=== PATIENT | female | born 1960 | race Hispanic/Latino ===

== ENCOUNTER → 2021-08-26 11:18 | Outpatient (CLI) | payer OTHER, SELFPAY ==
[2021-08-26 19:04] LABS: Add Manual Diff / Slide Review NO; Basophils Absolute Auto 100 /uL (0-100); Basophils Percent Auto 0.7 % (0-2); Eosinophils Absolute Auto 200 /uL (0-450); Eosinophils Percent Auto 2.7 % (2-4); Hematocrit 40.3 % (36-46); Hemoglobin 13.2 g/dL (12.0-16.0); Lymphocytes Absolute Auto 2000 /uL (1100-4500); Lymphocytes Percent Auto 25.7 % (25-40); Mean Corpuscular HGB Conc 32.9 % (30-36); Mean Corpuscular Hemoglobin 30.7 PG (26-34); Mean Corpuscular Volume 93.4 fL (80-100); Monocytes Absolute Auto 600 /uL (0-900); Monocytes Percent Auto 7.4 % (3-14); Neutrophils Absolute Auto 4800 /uL (1500-7000); Neutrophils Percent Auto 63.5 % (50-75); Platelet Count 241 X10^3/uL (150-400); Red Blood Cell Count 4.31 X10^6/uL (4.0-5.2); Red Cell Distribution Width 13.5 % (11.6-14.8); White Blood Cell Count 7.6 X10^3/uL (4.5-11.0)
[2021-08-26 19:06] LABS: Alanine Aminotransferase 19 IU/L (<35); Albumin 4.1 g/dL (3.5-5.0); Albumin Globulin Ratio 1.5 (1.0-2.8); Alkaline Phosphatase 67 U/L (38-126); Aspartate Aminotransferase 29 IU/L (14-36); BUN Creatinine Ratio 27.4 (6-22); Bilirubin Total 0.3 mg/dL (0.2-1.3); Blood Urea Nitrogen 20 mg/dL (7-17); Calcium 9.5 mg/dL (8.4-10.2); Carbon Dioxide 31 mmol/L (22-32); Chloride 103 mmol/L (98-107); Cholesterol 211 mg/dL (140-199); Estimated Glomerular Filt Rate > 60.0 mL/min (>60); Globulin 2.7 g/dL (1.7-4.1); Glucose 86 mg/dL (80-110); HDL Cholesterol 75 mg/dL (40-60); HEMOLYSIS < 15 (0-50); LDL Cholesterol Calculated 123 mg/dL (<100); Potassium 4.2 mmol/L (3.4-5.1); Sodium 140 mmol/L (137-145); Total Protein 6.8 g/dL (6.3-8.2); Triglycerides 65 mg/dL (35-150)
== END ==
PROVIDERS: PCP Physician Assistant; Visit Provider Physician Assistant
DX: I10 Essential (primary) hypertension (principal); Z13.220 Encounter for screening for lipoid disorders
CPT/HCPCS: 80053; 80061; 85025

== ENCOUNTER 2021-10-09 21:01 | Emergency (ER) | payer OTHER, SELFPAY ==
[2021-10-09 21:13] VITALS: BP 133/58; PULSE 74; RESP 12; TEMP 36.7; O2SAT 98; BMI 27.2
[2021-10-09 22:47] LABS: Add Manual Diff / Slide Review NO; Basophils Absolute Auto 0 /uL (0-100); Basophils Percent Auto 0.3 % (0-2); Eosinophils Absolute Auto 100 /uL (0-450); Hematocrit 41.8 % (36-46); Lymphocytes Absolute Auto 1200 /uL (1100-4500); Lymphocytes Percent Auto 14.4 % (25-40); Mean Corpuscular HGB Conc 33.5 % (30-36); Mean Corpuscular Hemoglobin 30.8 PG (26-34); Mean Corpuscular Volume 91.9 fL (80-100); Monocytes Absolute Auto 600 /uL (0-900); Monocytes Percent Auto 7.4 % (3-14); Neutrophils Absolute Auto 6100 /uL (1500-7000); Neutrophils Percent Auto 76.9 % (50-75); Platelet Count 233 X10^3/uL (150-400); Red Blood Cell Count 4.55 X10^6/uL (4.0-5.2); Red Cell Distribution Width 13.5 % (11.6-14.8)
[2021-10-09 22:57] LABS: Alanine Aminotransferase 20 IU/L (<35); Albumin 4.7 g/dL (3.5-5.0); Albumin Globulin Ratio 1.4 (1.0-2.8); Alkaline Phosphatase 55 U/L (38-126); Aspartate Aminotransferase 29 IU/L (14-36); BUN Creatinine Ratio 27.2 (6-22); Bilirubin Total 0.4 mg/dL (0.2-1.3); Blood Urea Nitrogen 28 mg/dL (7-17); Calcium 10.2 mg/dL (8.4-10.2); Carbon Dioxide 27 mmol/L (22-32); Chloride 101 mmol/L (98-107); Estimated Glomerular Filt Rate 54.1 mL/min (>60); Globulin 3.3 g/dL (1.7-4.1); Glucose 108 mg/dL (80-110); HEMOLYSIS < 15 (0-50); Lipase 54 U/L (23-300); Potassium 4.3 mmol/L (3.4-5.1); Sodium 138 mmol/L (137-145)
[2021-10-10 02:08] VITALS: BP 118/58; PULSE 57; RESP 18; O2SAT 96
--- NOTE | 2021-10-10 02:51 | ED.ABDPAIN ---
HPI - Abdominal Pain General Chief Complaint: Abdominal Pain Stated Complaint: RIGHT SIDE LOWER PAIN Time Seen by Provider: 10/10/21 02:44 Source: patient Mode of arrival: Ambulatory History of Present Illness HPI narrative: 61-year-old woman with history of hypertension hyperlipidemia presents with 5 days of increasing right lower quadrant abdominal pain. She notes that it is worse when she is standing or walking better if she is just laying flat. She is not complaining of vaginal discharge dysuria or flank pain. She describes no fevers or chills. She states she had a normal bowel movement yesterday that did not influence her pain in any way. She has never experienced pain like this previously. She denies cough, dyspnea, lower extremity edema. She notes that she had her 3rd COVID vaccine yesterday and does have a mild headache this evening. Related Data Previous Rx's Medication Instructions Recorded docusate sodium 250 mg capsule 250 mg PO DAILY #30 cap 10/10/21 oxycodone-acetaminophen 5 mg-325 1 tab PO Q6H PRN #12 tab 10/10/21 mg tablet Allergies Allergy/AdvReac Type Severity Reaction Status Date / Time No Known Drug Allergies Allergy Verified 10/09/21 21:20 Review of Systems Review of Systems Narrative: Remainder of complete review of systems is otherwise unremarkable except for that included in the HPI. Patient History Medical History (Updated 10/10/21 @ 05:04 by Deana Campbell MD) Hyperlipidemia Hypertension Social History Smoking Status: Never smoker Smoking Status: Never smoker alcohol intake frequency: a few times a month Substance Use Type: does not use Exam Narrative Exam Narrative: General: Healthy appearing, in no acute distress. Able to give a complete and coherent history. Well-nourished well-developed HEENT: Moist mucous membranes, normal sclera with reactive pupils, Neck: supple Respiratory: Lungs are clear to auscultation, no wheezing no rales no rhonchi. Full and symmetrical air movement Cardiac: Regular rate and rhythm no murmurs no bruits Abdomen: Soft, tender in the right lower quadrant without rebound or guarding, good bowel tones, no flank pain Skin: Warm and dry, no rashes Neurologic: Grossly neurologically intact with no obvious asymmetries or abnormalities Extremities: No trauma, well perfused Psych: Cooperative, appropriate insight and affect Initial Vital Signs Initial Vital Signs: Vital Signs Temperature 98.0 F 10/09/21 21:13 Pulse Rate 74 10/09/21 21:13 Respiratory Rate 12 10/09/21 21:13 Blood Pressure 133/58 L 10/09/21 21:13 Pulse Oximetry 98 10/09/21 21:13 Course Orders Ordered: ED Orders 10/09/21 22:35 Complete Blood Count AUTO DIFF Stat Comprehensive Metabolic Panel Stat Lipase Stat 10/10/21 02:55 CT abdomen pelvis w con Stat Discontinued Medications Sodium Chloride (Normal Saline 0.9%) 1,000 mls @ 1,000 mls/hr IV BOLUS ONE Stop: 10/10/21 03:53 Ketorolac Tromethamine (Ketorolac 30 Mg/Ml Vial) 15 mg IV NOW ONE Stop: 10/10/21 02:55 Last Admin: 10/10/21 03:24 Dose: 15 mg Documented by: MISHA Vital Signs Vital signs: Vital Signs - 8 hr 10/09/21 21:13 10/10/21 02:08 Temperature 98.0 F Pulse Rate 74 57 L Respiratory Rate 12 18 Blood Pressure 133/58 L 118/58 L Pulse Oximetry 98 96 MDM - Abdominal Pain Lab Data Result diagrams: 10/09/21 22:35 10/09/21 22:35 Labs: Lab Results 10/09/21 10/09/21 Range/Units 22:35 22:35 WBC 8.0 (4.5-11.0) X10^3/uL RBC 4.55 (4.0-5.2) X10^6/uL Hgb 14.0 (12.0-16.0) g/dL Hct 41.8 (36-46) % MCV 91.9 (80-100) fL MCH 30.8 (26-34) PG MCHC 33.5 (30-36) % RDW 13.5 (11.6-14.8) % Plt Count 233 (150-400) X10^3/uL Neut % (Auto) 76.9 H (50-75) % Lymph % (Auto) 14.4 L (25-40) % [place] % (Auto) 7.4 (3-14) % Eos % (Auto) 1.0 L (2-4) % Baso % (Auto) 0.3 (0-2) % Neut # (Auto) 6100 (0944-5323) /uL Lymph # (Auto) 1200 (6077-6629) /uL [place] # (Auto) 600 (0-900) /uL Eos # (Auto) 100 (0-450) /uL Baso # (Auto) 0 (0-100) /uL Sodium 138 (137-145) mmol/L Potassium 4.3 (3.4-5.1) mmol/L Chloride 101 (98-107) mmol/L Carbon Dioxide 27 (22-32) mmol/L BUN 28 H (7-17) mg/dL Creatinine 1.03 (0.52-1.04) mg/dL Estimated GFR 54.1 L (>60) mL/min BUN/Creatinine Ratio 27.2 H (6-22) Glucose 108 (80-110) mg/dL Calcium 10.2 (8.4-10.2) mg/dL Total Bilirubin 0.4 (0.2-1.3) mg/dL AST 29 (14-36) IU/L ALT 20 (<35) IU/L Alkaline Phosphatase 55 (38-126) U/L Total Protein 8.0 (6.3-8.2) g/dL Albumin 4.7 (3.5-5.0) g/dL Globulin 3.3 (1.7-4.1) g/dL Albumin/Globulin Ratio 1.4 (1.0-2.8) Lipase 54 (23-300) U/L Point of care testing: Urine Dip Bedside Urine Glucose Negative Bedside Urine Bilirubin - Negative Bedside Urine Ketone - Negative Urine Specific [place] 1.015 Bedside Urine Occult Blood - Negative Bedside Urine pH 5.0 Bedside Urine Protein - Negative Bedside Urine Urobilinogen - Negative Bedside Urine Nitrite - Negative Bedside Urine Leukocytes - Negative Esterase Imaging Data CT scan - abdomen/pelvis: Radiologist's Impression: 8 cm complex cystic right adnexal mass most consistent with an ovarian neoplasm. Bilateral nonobstructing renal calculi Distal colonic diverticulosis without evidence of acute diverticulitis Large stool burden MDM Narrative Medical decision making narrative: 61-year-old woman with a week of increasing right lower quadrant abdominal pain. Labs are fairly reassuring with normal white blood cell count, no hematuria to suggest kidney stone, nothing that looks like a urinary tract infection. Because symptoms have been increasing over the last week in the setting of normal regular bowel movements will move to CT scan to see if we can further elucidate the etiology of her right lower quadrant pain. CT scan returns showing an 8 cm complex cystic right adnexal mass concerning for cancer. Findings are shared with patient and her . Care is reviewed with DARRYL York on-call. Will have the patient contact [facility] on Tuesday to schedule an appointment with gynecology. She is given a short course of Percocet for pain. Have also given her docusate as a stool softener not only to help with the current stool burden but alleviate symptoms of constipation should she use any of the Percocet Questions are answered, patient and her understand they do need to call Tuesday to set up an appointment as soon as possible to schedule a consultation and presumably surgical intervention for the right adnexal mass that is causing her right lower quadrant pain. Discharge Plan Departure Patient Disposition: Home Clinical Impression: Mass of uterine adnexa, Acute right lower quadrant pain Activity Restrictions/Additional Instructions: Thank you for coming in today The CT scan showed an 8 cm mass on the right side of your uterus. This is concerning for ovarian cancer. You need to follow-up with a chest painting and sealing supervisor and will need surgery to have this removed so we know exactly what it is and how to treat it. Please call [facility] at [phone] on Tuesday and let them know that you are in the ER over the weekend, you need to schedule an appointment with a chest painting and sealing supervisor for a probable right ovarian cancer Using 400 mg of ibuprofen (2 qqcr-[id number]-kaefwob pills) and 1 Tylenol every 6 hours can be very helpful in controlling pain. For severe pain you can use 400 mg of ibuprofen and 1 Percocet. If you use Percocet, please also take a stool softener. If you have worsening symptoms or find that you can not have a bowel movement, please return to the ER I wish you the best Prescriptions: New oxycodone-acetaminophen 5-325 mg tablet 1 tab PO Q6H PRN (Reason: pain) Qty: 12 0RF docusate sodium 250 mg capsule 250 mg PO DAILY Qty: 30 0RF
--- NOTE | 2021-10-10 02:55 | DI.CT.S_ITS ---
PROCEDURE: CT ABDOMEN PELVIS W CON INDICATIONS: abd pain, RLQ TECHNIQUE: After the administration of oral and IV contrast, axial sections were acquired from the lung bases to the pubic symphysis. Coronal and sagittal reformats were performed. For radiation dose reduction, the following was used: automated exposure control, adjustment of mA and/or kV according to patient size. COMPARISON: None. FINDINGS: Image quality: Excellent. Lung bases: Unremarkable. There is a small to moderate hiatal hernia seen. Heart: No significant findings. ABDOMEN: Liver: Mild diffuse fatty liver infiltration is seen. No focal liver lesions are seen. Gallbladder: Unremarkable. Biliary ducts: Unremarkable. Pancreas: Unremarkable. Spleen: Unremarkable. Adrenal Glands: Unremarkable. Kidneys and Ureters: There is a nonobstructing 2 mm left-sided kidney stone and a nonobstructing right-sided 2 mm kidney stone. There is no hydronephrosis. The kidneys demonstrate normal size and enhance symmetrically. Stomach and Bowel: In this patient with this given history, scrutiny is given to the appendix. The appendix is well seen and is normal. No focal right lower quadrant inflammatory changes are seen. Stomach, small bowel loops, and colon are unremarkable. Colonic diverticulosis is seen, without findings of active diverticulitis. There is a moderate to prominent amount of stool seen within the colon. Peritoneum: No abnormal intraperitoneal fluid. No free air. Ventral Wall: No hernia. Abdominal Nodes: No retroperitoneal or mesenteric adenopathy by size criteria. Vessels: Aorta and inferior vena cava are normal in size. PELVIS: Pelvic Organs: There is a right ovarian septated cystic mass seen that measures 6.6 x 6.6 cm in greatest axial dimension, with a craniocaudal extent of 7.5 cm. Enhanced solid elements are seen along the superior aspect of this mass, as on series 4, image 41. Bladder: Unremarkable. Pelvic Nodes: No enlarged lymph nodes. Miscellaneous: No inguinal hernias are seen. Bones: Minimal S shaped scoliotic curvature is seen. Focal L5-S1 degenerative change is seen, with milder degenerative changes seen elsewhere. IMPRESSION: The appendix is normal. There is a 7.5 cm cystic septated right ovarian mass, with enhancing solid elements. There is strong clinical concern for ovarian neoplasm. Gynecology consultation is recommended. If clinically appropriate, a dedicated pelvic ultrasound or gynecological protocol MRI (without and with contrast) could be considered for further evaluation (assuming that there is no contraindication). There is a moderate to prominent amount of stool seen within the colon. Please correlate with an underlying history of constipation. Incidental note is made of: Small to moderate hiatal hernia Mild fatty liver infiltration Nonobstructing bilateral renal stones Diverticulosis, without active diverticulitis Focal L5-S1 degenerative change Note: No significant discrepancy from the preliminary report. Dictated by: Jeremias Ordaz M.D. on 10/10/2021 at 9:14 Approved by: Jeremias Ordaz M.D. on 10/10/2021 at 9:20
[2021-10-10] MEDS: SODIUM CHLORIDE 0.9% 1,000 ML 1000 ML IV (03:10)
[2021-10-10] MEDS: KETOROLAC 30 MG/ML VIAL 15 MG IV (03:24)
[2021-10-10 05:12] VITALS: BP 117/67; PULSE 55; RESP 16; O2SAT 97
== END 2021-10-10 05:23 | disposition home or self-care (01) ==
PROVIDERS: Emergency Provider Emergency Medicine
DX: R10.31 Right lower quadrant pain (principal); N85.8 Other specified noninflammatory disorders of uterus
CPT/HCPCS: 36415; 74177; 80053; 81003; 83690; 85025; 96361; 96374; 99284; J1885; Q9967

== ENCOUNTER → 2021-10-21 08:45 | Outpatient (CLI) | payer OTHER, SELFPAY ==
[2021-10-21 10:58] LABS: Cancer Antigen 125 < 5.5 U/mL (0-35)
[2021-10-25 11:36] LABS: Human Epididymis Prot 4 51.3 pmol/L (0.0-96.5)
== END ==
PROVIDERS: Referring Provider Obstetrics & Gynecology; Visit Provider Obstetrics & Gynecology
DX: R19.09 Other intra-abdominal and pelvic swelling, mass and lump (principal); N94.89 Other specified conditions associated with female genital organs and menstrual cycle
CPT/HCPCS: 36415; 86304; 86305

== ENCOUNTER → 2021-10-26 16:33 | Outpatient (CLI) | payer OTHER, SELFPAY ==
[2021-10-26 18:31] LABS: COVID19 -Nasal RAPID Negative (Negative)
== END ==
PROVIDERS: PCP Family Medicine; Visit Provider Obstetrics & Gynecology
DX: Z01.812 Encounter for preprocedural laboratory examination (principal); Z20.822 Contact with and (suspected) exposure to COVID-19
CPT/HCPCS: 87635

== ENCOUNTER 2021-10-27 06:12 | Day surgery (SDC) | payer OTHER, SELFPAY ==
[2021-10-26 11:57] VITALS: BMI 26.4
[2021-10-27] VITALS (12 sets, daily range): BP systolic 114–130; BP diastolic 53–78; PULSE 58–658; RESP 11–20; TEMP 36.4–36.9; O2SAT 92–99; BMI 26.4
--- NOTE | 2021-10-27 | PATH_ITS ---
[facility] Accession Number: [id number] . 01 Material submitted: . fallopian tube - BILATERAL TUBE AND OVARY . 01 Clinical history: . RIGHT OVARY WITH CYST . 02 Diagnosis: Bilateral Fallopian Tubes and Right Ovary, Laparoscopic Bilateral Salpingectomies with Right Oophorectomy: Right ovary with a benign multiloculated serous cystadenoma / adenofibroma (disrupted measurement 8.0 cm in greatest dimension). Right fallopian tube (no fimbriae identified at gross examination) with hydrosalpinx and with multiple benign Walthard rest cysts and with benign serous inclusion cysts (less than 1 mm); negative for atypia or malignancy. Left fallopian tube (no fimbriae identified) with serosal adhesions (non-specific) and with benign paratubal cysts (1-5 mm); negative for atypia or malignancy. [facility] 10/29/2021 1633 Local . 02 Electronically signed: . Callie London MD, Pathologist NPI- [id number] . 01 Gross description: . The specimen is received in formalin labeled bilateral tubes and ovary, right ovarian cyst and consists of an 8.0 x 7.0 x 4.2 cm fragmented and disrupted cystic ovary with a ware-pink to ware-white smooth to wrinkled external surface. Opening reveals a ware-pink, smooth to wrinkled inner lining with no papillary excrescences. The cyst wall measures 0.1 cm. The attached fallopian tube measures 8.0 cm in length x 1.0 cm in diameter and displays a ware-pink smooth serosa. No fimbriae are present. Sectioning reveals a ware-pink mucosa and a lumen measuring 0.6 cm in diameter. Also, received is an additional fallopian tube measuring 3.6 cm in length x 0.8 cm in diameter with a pink-purple smooth to ragged serosa. No fimbriae are present. Sectioning reveals a ware-pink mucosa and a lumen measuring 0.3 cm in diameter. [employer] are sections are submitted. . A1-A3 - [employer] ovarian cyst. A4 - Attached fallopian tube, margin (en face/blue), bisected tip and central cross sections. A5 - Other fallopian tube, margin (blue/en face), central cross sections and bisected tip. ([id number]) /[facility] 10/28/2021 1658 Local . 02 Pathologist provided ICD-10: N83.209 . 02 CPT . 544461 Performed at: 01 [facility] [address] [facility], [place], [place] [id number] MD J Carlos Julio MD Phone: [phone] Performed at: 02 [facility] [address] [place], [place] [id number] MD Elaine Michelle MD Phone: [phone]
[2021-10-27] MEDS: LACTATED RINGERS 1,000 ML 100 ML IV ×2 (07:12→10:11)
--- NOTE | 2021-10-27 07:18 | SUR.OPER ---
Lithotomy on padded OR bed, head on pillow, arms secured on padded arm boards at <90 degrees abduction. Legs secured in padded yellow fins stirrups.
--- NOTE | 2021-10-27 08:23 | PM.PREOP ---
Pre-operative Note COVID-19 COVID-19 status: Negative Result date/Date tested (Pos, Neg/Pending): 10/26/21 Interval Note History & Physical reviewed/Exam performed by Physician: Yes Changes to H&P: No H&P completed within 30 days and has changed as indicated here:: 10/21/21
[2021-10-27] MEDS: EPINEPHrine 1 MG/ML 0.15 MG INJ (08:39)
[2021-10-27] MEDS: BUPIVACAINE 0.5% (PF) VIAL 30 ML INJ (08:40)
--- NOTE | 2021-10-27 09:51 | PM.GYNOP.1 ---
Operative Date/Time/Diagnoses Date of procedure: 10/27/21 Time of procedure: 09:52 Pre-op diagnosis: 7 cm Right ovarian mass Post-op diagnosis: same Procedure & Clinicians Procedure: Procedures Operation Date: 10/27/21 07:45 Actual Procedure Side Surgeon p Laparoscopic Salpingo-oophorectomy Bilateral Haley Marie MD Indications: 7 cm complex ovarian mass RLQ pain Surgeon: Haley Marie Anesthesia Type: General and Local Operative Notes Findings: 5 wk size anteverted uterus 7 cm multicystic mass of right ovary Nl tubes Normal left ovary Normal liver and gallbladder Normal appendix Colon to right abdominal sidewall adhesions Colon 2 right upper quadrant sidewall adhesions Left ovary to uterine adhesions Closure Type: primary Specimen(s): left tube & ovary, right tube & ovary and other (cyst fluid to cytology) Applied: catheter (in and out) Estimated blood loss (mL): 10 Blood products transfused: none Procedure in detail: After informed consent was obtained, the patient was taken to the operating room where she was placed in the dorsal supine position. After adequate general endotracheal anesthesia was achieved, she was placed in the dorsal lithotomy position, and prepped and draped in the usual sterile fashion. A time-out was performed. A bivalve speculum was placed into the vagina and the anterior lip of the cervix was grasped with a single-tooth tenaculum. The cervical os was sequentially dilated until the Zumi uterine manipulator could pass easily into the endometrial cavity. Single-tooth tenaculum was removed from the anterior lip of the cervix. The bivalve speculum was removed from the vagina. Attention was then turned to the abdomen where 6 cc of 0.5% Marcaine with epinephrine were injected in the umbilical fold. A 5 mm incision was made. The Veress needle was placed into the peritoneal cavity, and its placement confirmed by aspiration and drop test. The abdominal cavity was insufflated with 3.1 L of CO2. The Veress needle was removed, and a 5 mm trocar was placed without difficulty. Two other incisions were made 4 cm lateral to the midline after 6 cc of 0.5% Marcaine with epinephrine were injected. 5 mm incisions were made. Two 5 mm trocars were placed under direct visualization. The right tube and ovary were visualized and there was a 7 cm cyst on the right ovary. The left ovary was normal as was the left tube. The right tube was also normal. The right tube and ovary were grasped with an atraumatic grasper. Using the PlasmaKinetic was settings at 40 w, the infundibulopelvic ligament on the right side was cauterized and cut. Cautery was continued down the mesosalpinx all the way to the cornua of the uterus. The tube was amputated at the cornua. The right tube and ovary were placed into the anterior cul-de-sac. This was all repeated on the patient's left side. The upper abdomen was examined and was found to be normal with liver and gallbladder. The appendix was normal. There were some adhesions between the colon and the right abdominal sidewall and right upper quadrant sidewall. These were taken down with the Endo Castillo. Hemostasis was achieved. Hemostasis was achieved in the pelvis as well. A fourth incision was made above the pubic symphysis that was 12 mm, after 6 cc of 0.5% Marcaine with epinephrine were injected. A 12 mm trocar was placed. The large endobag was placed into the pelvis. The tubes and ovaries were placed into the bag. The trocar was removed. The edges of the bag were brought up through the skin. A spinal needle was placed into the bag and approximately 90 cc of clear fluid was drained from the cyst. The bag was then removed with the tubes and ovaries inside. The fascia on the suprapubic incision was closed with 0 Vicryl in a running fashion. The pelvis was examined after it was re-insufflated. There was no bleeding noted. The instruments were removed from the abdomen. The CO2 was allowed to escape. Suprapubic incision was closed with 2 simple interrupted sutures with 3-0 Vicryl in the sub cutaneous layer. All of the incisions were closed with 4-0 Monocryl in a sub cuticular fashion. Steri-Strips and Allevyn dressings were placed. The Zumi uterine manipulator was removed from the uterus. Sponge, lap, and instrument counts were correct x2. The patient tolerated the procedure well, and was taken to PACU in stable condition. Complications: none Post-operative Condition: stable Disposition: PACU Plan for aftercare: Home after recovery
[2021-10-27] MEDS: OXYCODONE/ACETAMINOPHEN 5/325 TABLET 1 TAB PO ×2 (10:14→10:48)
[2021-10-27] MEDS: ONDANSETRON 4 MG/2 ML INJ IV (10:14)
[2021-10-27] MEDS: HYDROMORPHONE 2 MG INJ IV (10:27)
== END 2021-10-27 11:45 | disposition home or self-care (01) ==
PROVIDERS: PCP Family Medicine; Referring Provider Obstetrics & Gynecology; Visit Provider Obstetrics & Gynecology
PROC: 0UT24ZZ Resection of Bilateral Ovaries, Percutaneous Endoscopic Approach (ICD-10-PCS; CPT 58661; principal; 2021-10-27 07:45)
DX: N83.8 Other noninflammatory disorders of ovary, fallopian tube and broad ligament (principal); K66.0 Peritoneal adhesions (postprocedural) (postinfection); I10 Essential (primary) hypertension; E78.5 Hyperlipidemia, unspecified; D27.0 Benign neoplasm of right ovary; N70.11 Chronic salpingitis
CPT/HCPCS: 58661; J0171; J1100; J1170; J1885; J2405; J2704; J3010

== ENCOUNTER → 2021-12-28 07:59 | Outpatient (CLI) | payer OTHER, SELFPAY ==
[2021-12-28 19:33] LABS: Cholesterol 171 mg/dL (140-199); HDL Cholesterol 67 mg/dL (40-60); LDL Cholesterol Calculated 92 mg/dL (<100); Triglycerides 59 mg/dL (35-150)
== END ==
PROVIDERS: PCP Physician Assistant; Visit Provider Family Medicine
DX: E78.5 Hyperlipidemia, unspecified (principal); I10 Essential (primary) hypertension
CPT/HCPCS: 80061

== ENCOUNTER → 2022-07-22 11:09 | Outpatient (CLI) | payer OTHER, SELFPAY ==
[2022-07-22 19:30] LABS: Hemoglobin A1C% w Est Avg Glu 5.6 % (4.0-6.0)
[2022-07-22 19:38] LABS: Alanine Aminotransferase 24 IU/L (<35); Albumin 4.4 g/dL (3.5-5.0); Albumin Globulin Ratio 1.5 (1.0-2.8); Alkaline Phosphatase 63 U/L (38-126); Aspartate Aminotransferase 32 IU/L (14-36); BUN Creatinine Ratio 18.5 (6-22); Bilirubin Total 0.6 mg/dL (0.2-1.3); Blood Urea Nitrogen 17 mg/dL (7-17); Calcium 9.4 mg/dL (8.4-10.2); Carbon Dioxide 26 mmol/L (22-32); Chloride 104 mmol/L (98-107); Estimated Glomerular Filt Rate > 60 mL/min (>60); Glucose 85 mg/dL (80-110); HEMOLYSIS < 15 (0-50); Potassium 4.6 mmol/L (3.4-5.1); Sodium 139 mmol/L (137-145); Total Protein 7.4 g/dL (6.3-8.2)
== END ==
PROVIDERS: PCP Physician Assistant; Visit Provider Physician Assistant
DX: I10 Essential (primary) hypertension (principal); Z13.1 Encounter for screening for diabetes mellitus
CPT/HCPCS: 80053; 83036

== ENCOUNTER → 2023-08-23 08:53 | Outpatient (CLI) | payer OTHER, SELFPAY ==
[2023-08-23 19:09] LABS: Alanine Aminotransferase 29 IU/L (<35); Albumin 4.3 g/dL (3.5-5.0); Albumin Globulin Ratio 1.4 (1.0-2.8); Alkaline Phosphatase 59 U/L (38-126); Aspartate Aminotransferase 37 IU/L (14-36); BUN Creatinine Ratio 30.1 (6-22); Bilirubin Total 0.8 mg/dL (0.2-1.3); Blood Urea Nitrogen 25 mg/dL (7-17); Calcium 10.3 mg/dL (8.4-10.2); Carbon Dioxide 27 mmol/L (22-32); Chloride 102 mmol/L (98-107); Cholesterol 185 mg/dL (140-199); Estimated Glomerular Filt Rate > 60 mL/min (>60); Glucose 92 mg/dL (80-110); HDL Cholesterol 79 mg/dL (40-60); HEMOLYSIS < 15 (0-50); LDL Cholesterol Calculated 93 mg/dL (<100); Potassium 4.3 mmol/L (3.4-5.1); Sodium 139 mmol/L (137-145); Total Protein 7.3 g/dL (6.3-8.2); Triglycerides 63 mg/dL (35-150)
[2023-08-23 19:26] LABS: Add Manual Diff / Slide Review NO; Basophils Absolute Auto 0 /uL (0-100); Basophils Percent Auto 0.5 % (0-2); Eosinophils Absolute Auto 200 /uL (0-450); Eosinophils Percent Auto 3.1 % (2-4); Hematocrit 41.7 % (36-46); Lymphocytes Absolute Auto 1900 /uL (1100-4500); Lymphocytes Percent Auto 27.9 % (25-40); Mean Corpuscular HGB Conc 33.7 % (30-36); Mean Corpuscular Hemoglobin 31.3 PG (26-34); Mean Corpuscular Volume 92.9 fL (80-100); Monocytes Absolute Auto 600 /uL (0-900); Monocytes Percent Auto 9.5 % (3-14); Neutrophils Absolute Auto 4000 /uL (1500-7000); Platelet Count 232 X10^3/uL (150-400); Red Blood Cell Count 4.48 X10^6/uL (4.0-5.2); Red Cell Distribution Width 13.9 % (11.6-14.8); White Blood Cell Count 6.7 X10^3/uL (4.5-11.0)
== END ==
PROVIDERS: PCP Physician Assistant; Visit Provider Physician Assistant
DX: E78.5 Hyperlipidemia, unspecified (principal); I10 Essential (primary) hypertension; Z79.899 Other long term (current) drug therapy
CPT/HCPCS: 80053; 80061; 85025

== ENCOUNTER → 2023-10-20 11:26 | Outpatient (CLI) | payer OTHER, SELFPAY ==
[2023-10-20 21:15] LABS: Alanine Aminotransferase 19 IU/L (<35); Albumin 4.3 g/dL (3.5-5.0); Albumin Globulin Ratio 1.5 (1.0-2.8); Alkaline Phosphatase 63 U/L (38-126); Aspartate Aminotransferase 27 IU/L (14-36); BUN Creatinine Ratio 24.1 (6-22); Bilirubin Total 0.7 mg/dL (0.2-1.3); Blood Urea Nitrogen 19 mg/dL (7-17); Calcium 10.1 mg/dL (8.4-10.2); Carbon Dioxide 29 mmol/L (22-32); Chloride 101 mmol/L (98-107); Estimated Glomerular Filt Rate > 60 mL/min (>60); Globulin 2.9 g/dL (1.7-4.1); Glucose 97 mg/dL (80-110); HEMOLYSIS < 15 (0-50); Potassium 4.2 mmol/L (3.4-5.1); Sodium 137 mmol/L (137-145); Total Protein 7.2 g/dL (6.3-8.2)
== END ==
PROVIDERS: PCP Physician Assistant; Visit Provider Physician Assistant
DX: I10 Essential (primary) hypertension (principal); R74.8 Abnormal levels of other serum enzymes
CPT/HCPCS: 80053

== ENCOUNTER → 2024-08-14 15:18 | Outpatient (CLI) | payer OTHER, SELFPAY | PROVIDERS: PCP Physician Assistant; Visit Provider Physician Assistant | DX: R30.0 Dysuria (principal) | CPT/HCPCS: 87086 ==

== ENCOUNTER → 2024-08-29 09:35 | Outpatient (CLI) | payer OTHER, SELFPAY ==
[2024-08-31 11:12] LABS: Fecal Immunochemical Test Negative (Negative)
== END ==
PROVIDERS: PCP Physician Assistant; Visit Provider Physician Assistant
DX: I10 Essential (primary) hypertension (principal); E78.5 Hyperlipidemia, unspecified; R74.8 Abnormal levels of other serum enzymes; Z12.11 Encounter for screening for malignant neoplasm of colon; Z11.59 Encounter for screening for other viral diseases
CPT/HCPCS: 82274

== ENCOUNTER → 2024-09-07 08:15 | Outpatient (CLI) | payer OTHER, SELFPAY ==
[2024-09-07 21:45] LABS: Add Manual Diff / Slide Review NO; Basophils Absolute Auto 0 /uL (0-100); Basophils Percent Auto 0.6 % (0-2); Eosinophils Absolute Auto 200 /uL (0-450); Eosinophils Percent Auto 4.1 % (2-4); Hematocrit 42.2 % (36-46); Hemoglobin 14.2 g/dL (12.0-16.0); Lymphocytes Absolute Auto 1200 /uL (1100-4500); Lymphocytes Percent Auto 21.5 % (25-40); Mean Corpuscular HGB Conc 33.8 % (30-36); Mean Corpuscular Hemoglobin 31.7 PG (26-34); Mean Corpuscular Volume 93.7 fL (80-100); Monocytes Absolute Auto 700 /uL (0-900); Monocytes Percent Auto 12.1 % (3-14); Neutrophils Absolute Auto 3600 /uL (1500-7000); Neutrophils Percent Auto 61.7 % (50-75); Platelet Count 219 X10^3/uL (150-400); Red Cell Distribution Width 13.4 % (11.6-14.8); White Blood Cell Count 5.8 X10^3/uL (4.5-11.0)
[2024-09-07 21:51] LABS: Appearance Urine UA SL CLOUDY; Bilirubin Urine UA NEGATIVE (NEGATIVE); Color Urine UA YELLOW; Glucose Urine UA NEGATIVE (Negative); Ketones Urine UA NEGATIVE (NEGATIVE); Leukocyte Esterase Urine UA NEGATIVE (NEGATIVE); Nitrite Urine UA NEGATIVE (Negative); Occult Blood Urine UA NEGATIVE (Negative); Protein Urine UA NEGATIVE (Negative); Urobilinogen Urine UA 0.2 E.U./dL (0.2)
[2024-09-07 22:02] LABS: Bacteria Urine Occasional (0-1); Cholesterol 179 mg/dL (140-199); HDL Cholesterol 73 mg/dL (40-60); LDL Cholesterol Calculated 93 mg/dL (<100); RBC Urine 0-1/HPF (0-5/HPF); Squamous Epithelial Cell Urine 0-1 /HPF (0-5/HPF); Triglycerides 67 mg/dL (35-150); Urine Volume 10mL (spun); WBC Urine 0-1/HPF (0-5/HPF)
[2024-09-07 22:03] LABS: Amorphous Sediment Urine 3+; Culture Indicated Urine Cult Not Indicated
[2024-09-10 16:57] LABS: Hep C Virus Ab w/Reflex Quant NEGATIVE s/c (NEGATIVE)
== END ==
PROVIDERS: PCP Physician Assistant; Visit Provider Physician Assistant
DX: Z11.59 Encounter for screening for other viral diseases (principal); Z12.11 Encounter for screening for malignant neoplasm of colon; I10 Essential (primary) hypertension; E78.5 Hyperlipidemia, unspecified; R74.8 Abnormal levels of other serum enzymes; R31.9 Hematuria, unspecified
CPT/HCPCS: 80061; 81001; 85025; 86803

== ENCOUNTER → 2025-10-08 08:52 | Outpatient (CLI) | payer OTHER, SELFPAY ==
[2025-10-08 19:14] LABS: Hematocrit 39.5 % (36-46); Hemoglobin 13.3 g/dL (12.0-16.0); Mean Corpuscular HGB Conc 33.6 % (30-36); Mean Corpuscular Hemoglobin 31.3 PG (26-34); Mean Corpuscular Volume 93.1 fL (80-100); Platelet Count 249 X10^3/uL (150-400)
[2025-10-08 19:39] LABS: Alanine Aminotransferase 22 IU/L (<35); Albumin 4.3 g/dL (3.5-5.0); Albumin Globulin Ratio 1.5 (1.0-2.8); Alkaline Phosphatase 70 U/L (38-126); Blood Urea Nitrogen 27 mg/dL (7-17); Calcium 10.1 mg/dL (8.4-10.2); Carbon Dioxide 27 mmol/L (22-32); Chloride 105 mmol/L (98-107); Cholesterol 158 mg/dL (140-199); Estimated Glomerular Filt Rate > 60 mL/min (>60); Globulin 2.9 g/dL (1.7-4.1); Glucose 95 mg/dL (70-99); HDL Cholesterol 68 mg/dL (40-60); HEMOLYSIS 15 (0-50); Hemoglobin A1C% w Est Avg Glu 5.5 % (4.0-6.0); Potassium 4.7 mmol/L (3.4-5.1); Sodium 139 mmol/L (137-145); Total Protein 7.2 g/dL (6.3-8.2); Triglycerides 57 mg/dL (35-150)
== END ==
PROVIDERS: PCP Physician Assistant; Visit Provider Physician Assistant Medical
DX: R74.8 Abnormal levels of other serum enzymes (principal); I10 Essential (primary) hypertension; E78.5 Hyperlipidemia, unspecified; Z13.1 Encounter for screening for diabetes mellitus; Z11.59 Encounter for screening for other viral diseases; Z12.11 Encounter for screening for malignant neoplasm of colon
CPT/HCPCS: 80053; 80061; 83036; 85027